=== PATIENT | male | born 1945 | race Hispanic/Latino ===

== ENCOUNTER 2019-12-03 00:07 | Inpatient (IN) | payer OTHER ==
[~2019-12-03] VITALS: Ht 182.9 cm; Wt 79.7 kg
[2019-12-04] VITALS (14 sets, daily range): BP systolic 92–122; BP diastolic 54–81
[2019-12-04] MEDS: HEPARIN SODIUM 5000UNIT/ML 1ML VIAL SQ SCH ×2 (03:15→15:02)
[2019-12-04] MEDS ORDERED: FUROSEMIDE 10 MG/ML 2ML VIAL IV SCH (03:15)
[2019-12-04] MEDS ORDERED: ONDANSETRON HCL 4 MG/2 ML VIAL IV PRN (03:15)
[2019-12-04] MEDS ORDERED: MORPHINE SULFATE 2 MG/ML 1ML SYG IVP PRN (03:15)
[2019-12-04] MEDS ORDERED: HYDRALAZINE HCL 20 MG/ML VIAL IV PRN (03:15)
[2019-12-04] MEDS: NITROGLYCERIN 1GM/1 INCH PACKET TD SCH ×2 (03:54→12:05)
[2019-12-04] MEDS ORDERED: IPRATROPIUM/ALBUTEROL SULFATE 3 ML SOLUTION IH PRN (04:45)
[2019-12-04 07:05] LABS: BASOPHILS % (AUTO) 0.7 % (0.0-5.0); EOSINOPHILS % (AUTO) 4.4 % (0.0-8.0); LYMPHOCYTES % (AUTO) 18.2 % (21.0-51.0); MEAN CORPUSCULAR HEMOGLOBIN 28.8 pg (27.0-33.0); MEAN CORPUSCULAR HGB CONC 31.1 g/dL (32.0-36.0); MEAN CORPUSCULAR VOLUME 92.6 fL (79-99); MONOCYTES % (AUTO) 10.6 % (3.0-13.0); NEUTROPHILS % (AUTO) 65.8 % (40.0-77.0); PLATELET COUNT (AUTO) 241 K/uL (130-400); RED BLOOD CELL COUNT(AUTO) 3.78 MIL/uL (4.50-6.20); RED CELL DISTRIBUTION WIDTH 14.8 % (11.0-15.5); WHITE BLOOD COUNT (AUTO) 6.8 K/uL (4.8-10.8)
[2019-12-04 07:16] LABS: INR 1.08 (0.85-1.15); PROTHROMBIN TIME 11.6 SEC (9.6-11.6)
[2019-12-04 07:23] LABS: ALBUMIN 2.8 g/dL (3.5-5.0); BILIRUBIN,DIRECT 0.3 mg/dL (0.0-0.3); CREATININE 1.1 mg/dL (0.5-1.5); POTASSIUM 3.8 mmol/L (3.5-5.1); TOTAL PROTEIN, SERUM 6.5 g/dL (6.0-8.3); TROPONIN I 0.19 ng/mL (0.00-0.06)
[2019-12-04 07:33] LABS: B-TYPE NATRIURETIC PEPTIDE 972 pg/mL (0-100)
[2019-12-04] MEDS ORDERED: LOSARTAN 50 MG TABLET PO SCH (09:00)
[2019-12-04] MEDS: FAMOTIDINE/PF 20 MG/2 ML VIAL IV SCH ×2 (09:24→20:06)
[2019-12-04] MEDS ORDERED: IOHEXOL 350 MG/ML 100ML INFUS..BTL IV ONE (14:02)
[2019-12-04] MEDS ORDERED: NITROGLYCERIN 2 MG/VIAL VIAL IV ONE (14:02)
[2019-12-04] MEDS ORDERED: HEPARIN SODIUM 1000UNIT/ML 10ML VIAL ONE (14:02)
[2019-12-04] MEDS ORDERED: BIVALIRUDIN 250 MG/VIAL IV ONE (14:02)
[2019-12-04] MEDS ORDERED: LIDOCAINE HCL 2% 20ML ONE (14:03)
[2019-12-04] MEDS ORDERED: MIDAZOLAM HCL 1 MG/ML 2ML VIAL ONE (14:03)
[2019-12-04] MEDS ORDERED: AMINOCAPROIC ACID 250 MG/ML 20 ML VIAL IV ONE (16:05)
[2019-12-04] MEDS ORDERED: ALBUMIN (HUMAN) 25% 50 ML IV ONE (16:05)
[2019-12-04] MEDS ORDERED: PHENYLEPHRINE HCL 10 MG/ML 1ML VIAL IV ONE (16:08)
[2019-12-04] MEDS ORDERED: MAGNESIUM SULFATE 1 GM/2 ML VIAL IM ONE (16:08)
[2019-12-04] MEDS ORDERED: SODIUM BICARB 8.4% 50ML SYRINGE IVP ONE (16:08)
[2019-12-04] MEDS ORDERED: HEPARIN SODIUM 1000UNIT/ML 10ML VIAL IV ONE (16:08)
[2019-12-04] MEDS ORDERED: MANNITOL 25% 50ML VIAL IV ONE (16:08)
[2019-12-04] MEDS ORDERED: CALCIUM CHLORIDE 100 MG/ML 10 ML SYG IVP ONE (16:08)
[2019-12-04] MEDS ORDERED: IOHEXOL-350 50ML VIAL IV ONE ×2 (16:11→16:43)
[2019-12-04] MEDS ORDERED: ASPIRIN 325MG EC TAB 325 MG TABLET.DR PO ONE (16:18)
[2019-12-04] MEDS ORDERED: CLOPIDOGREL BISULFATE 300 MG TAB ONE (16:18)
[2019-12-04] MEDS: FUROSEMIDE 10 MG/ML 2ML VIAL IV SCH (18:02)
[2019-12-04] MEDS: ATORVASTATIN CALCIUM 20 MG TABLET PO SCH (20:06)
[2019-12-05] VITALS (8 sets, daily range): BP systolic 87–136; BP diastolic 52–70
[2019-12-05 05:14] LABS: BASOPHILS % (AUTO) 0.6 % (0.0-5.0); EOSINOPHILS % (AUTO) 3.7 % (0.0-8.0); HEMATOCRIT 35.5 % (42-54); LYMPHOCYTES % (AUTO) 20.9 % (21.0-51.0); MEAN CORPUSCULAR HEMOGLOBIN 29.7 pg (27.0-33.0); MEAN CORPUSCULAR HGB CONC 31.8 g/dL (32.0-36.0); MEAN CORPUSCULAR VOLUME 93.2 fL (79-99); MONOCYTES % (AUTO) 13.3 % (3.0-13.0); NEUTROPHILS % (AUTO) 61.2 % (40.0-77.0); PLATELET COUNT (AUTO) 272 K/uL (130-400); RED BLOOD CELL COUNT(AUTO) 3.81 MIL/uL (4.50-6.20); RED CELL DISTRIBUTION WIDTH 14.7 % (11.0-15.5); WHITE BLOOD COUNT (AUTO) 6.4 K/uL (4.8-10.8)
[2019-12-05 05:31] LABS: B-TYPE NATRIURETIC PEPTIDE 1050 pg/mL (0-100)
[2019-12-05 05:37] LABS: ALANINE AMINOTRANSFERASE 51 U/L (12-78); ASPARTATE AMINOTRANSFERASE 24 U/L (10-37); BILIRUBIN,TOTAL 0.7 mg/dL (0.2-1.0); CARBON DIOXIDE 31 mmol/L (21-32); CHLORIDE 103 mmol/L (101-111); CHOLESTEROL 100 mg/dL (<200); CREATININE 1.2 mg/dL (0.5-1.5); GLOMERULAR FILTR. RATE CALC 63 mL/min (>60); GLUCOSE,RANDOM 93 mg/dL (70-105); HDL CHOLESTEROL 25 mg/dL (29-71); LDL DIRECT 65 mg/dL (0-99); PHOSPHORUS 3.5 mg/dL (2.5-4.9); POTASSIUM 3.5 mmol/L (3.5-5.1); SODIUM SERUM 139 mmol/L (136-145); TOTAL PROTEIN, SERUM 6.8 g/dL (6.0-8.3); TRIGLYCERIDES 80 mg/dL (30-200); UREA NITROGEN, BLOOD 26 mg/dL (7-18)
[2019-12-05] MEDS: FUROSEMIDE 10 MG/ML 2ML VIAL IV SCH ×2 (06:04→17:16)
[2019-12-05] MEDS ORDERED: POTASSIUM CHLORIDE 20MEQ/100ML 100 ML IV PRN (07:45)
[2019-12-05] MEDS ORDERED: LIDOCAINE HCL-MPF 1% 2ML VIAL IV PRN (07:45)
[2019-12-05] MEDS ORDERED: POTASSIUM CHLORIDE 20 MEQ ERTAB PO PRN (07:45)
[2019-12-05] MEDS: ASPIRIN 81 MG EC TAB PO SCH (08:30)
[2019-12-05] MEDS: FAMOTIDINE/PF 20 MG/2 ML VIAL IV SCH ×2 (08:30→21:00)
[2019-12-05] MEDS: POTASSIUM CHLORIDE 10% ELIXIR 20 MEQ/15 ML UDCUP PO PRN ×2 (08:30→13:20)
[2019-12-05] MEDS ORDERED: POTASSIUM CHLORIDE 10% ELIXIR 20 MEQ/15 ML UDCUP PO SCH (12:00)
[2019-12-05] MEDS ORDERED: FUROSEMIDE 10 MG/ML 2ML VIAL IV SCH (12:00)
[2019-12-05] MEDS: ATORVASTATIN CALCIUM 20 MG TABLET PO SCH (21:00)
[2019-12-06 03:00] VITALS: BP 105/67
[2019-12-06] MEDS: FUROSEMIDE 10 MG/ML 2ML VIAL IV SCH ×2 (05:31→18:49)
[2019-12-06 07:00] VITALS: BP 89/53
[2019-12-06] MEDS: ASPIRIN 81 MG EC TAB PO SCH (09:00)
[2019-12-06] MEDS: FAMOTIDINE/PF 20 MG/2 ML VIAL IV SCH ×2 (09:00→20:09)
[2019-12-06 09:26] LABS: CREATININE 1.2 mg/dL (0.5-1.5)
[2019-12-06 11:42] VITALS: BP 87/58
[2019-12-06 16:00] VITALS: BP 97/64
[2019-12-06 20:09] VITALS: BP 93/61
[2019-12-06] MEDS: ATORVASTATIN CALCIUM 20 MG TABLET PO SCH (20:09)
[2019-12-06 23:37] VITALS: BP 114/73
[2019-12-07 03:58] VITALS: BP 108/83
[2019-12-07] MEDS: FUROSEMIDE 10 MG/ML 2ML VIAL IV SCH ×2 (05:03→16:11)
[2019-12-07 07:17] VITALS: BP 99/65
[2019-12-07] MEDS: ENOXAPARIN SODIUM 30 MG/0.3 ML SQ SCH (08:56)
[2019-12-07] MEDS: ASPIRIN 81 MG EC TAB PO SCH (08:56)
[2019-12-07] MEDS: FAMOTIDINE/PF 20 MG/2 ML VIAL IV SCH ×2 (08:56→20:49)
[2019-12-07 11:12] VITALS: BP 105/62
[2019-12-07 15:43] VITALS: BP 106/65
[2019-12-07 19:21] VITALS: BP 96/67
[2019-12-07] MEDS: ATORVASTATIN CALCIUM 20 MG TABLET PO SCH (20:49)
[2019-12-07 23:00] VITALS: BP 100/60
[2019-12-08] VITALS (7 sets, daily range): BP systolic 84–108; BP diastolic 54–67
[2019-12-08] MEDS: FUROSEMIDE 10 MG/ML 2ML VIAL IV SCH ×2 (05:15→17:21)
[2019-12-08 07:13] LABS: BASOPHILS % (AUTO) 0.8 % (0.0-5.0); EOSINOPHILS % (AUTO) 3.3 % (0.0-8.0); LYMPHOCYTES % (AUTO) 19.1 % (21.0-51.0); MEAN CORPUSCULAR HEMOGLOBIN 29.5 pg (27.0-33.0); MEAN CORPUSCULAR HGB CONC 32.1 g/dL (32.0-36.0); NEUTROPHILS % (AUTO) 65.4 % (40.0-77.0); PLATELET COUNT (AUTO) 274 K/uL (130-400); RED BLOOD CELL COUNT(AUTO) 4.24 MIL/uL (4.50-6.20); RED CELL DISTRIBUTION WIDTH 14.5 % (11.0-15.5); WHITE BLOOD COUNT (AUTO) 7.9 K/uL (4.8-10.8)
[2019-12-08 07:18] LABS: ALBUMIN 3.2 g/dL (3.5-5.0); CREATININE 1.1 mg/dL (0.5-1.5); POTASSIUM 3.7 mmol/L (3.5-5.1); TOTAL PROTEIN, SERUM 7.4 g/dL (6.0-8.3)
[2019-12-08] MEDS: FAMOTIDINE/PF 20 MG/2 ML VIAL IV SCH ×2 (09:11→20:35)
[2019-12-08] MEDS: ASPIRIN 81 MG EC TAB PO SCH (09:11)
[2019-12-08] MEDS: ENOXAPARIN SODIUM 30 MG/0.3 ML SQ SCH (09:12)
[2019-12-08 09:33] LABS: BILIRUBIN,TOTAL 0.9 mg/dL (0.2-1.0)
[2019-12-08] MEDS: ATORVASTATIN CALCIUM 20 MG TABLET PO SCH (20:35)
[2019-12-09] VITALS (33 sets, daily range): BP systolic 90–208; BP diastolic 41–192
[2019-12-09] MEDS: FUROSEMIDE 10 MG/ML 2ML VIAL IV SCH (04:25)
[2019-12-09 04:47] LABS: BASOPHILS % (AUTO) 0.6 % (0.0-5.0); EOSINOPHILS % (AUTO) 4.2 % (0.0-8.0); LYMPHOCYTES % (AUTO) 20.7 % (21.0-51.0); MEAN CORPUSCULAR HEMOGLOBIN 28.5 pg (27.0-33.0); MEAN CORPUSCULAR HGB CONC 31.6 g/dL (32.0-36.0); MEAN CORPUSCULAR VOLUME 90.2 fL (79-99); MONOCYTES % (AUTO) 13.6 % (3.0-13.0); NEUTROPHILS % (AUTO) 60.6 % (40.0-77.0); PLATELET COUNT (AUTO) 249 K/uL (130-400); RED CELL DISTRIBUTION WIDTH 14.3 % (11.0-15.5); WHITE BLOOD COUNT (AUTO) 6.4 K/uL (4.8-10.8)
[2019-12-09 05:11] LABS: BILIRUBIN,TOTAL 0.9 mg/dL (0.2-1.0); CREATININE 1.1 mg/dL (0.5-1.5); INR 1.02 (0.85-1.15); PARTIAL THROMBOPLASTIN TIME 30.3 SEC (26.3-35.5); POTASSIUM 3.8 mmol/L (3.5-5.1); TOTAL PROTEIN, SERUM 7.2 g/dL (6.0-8.3)
[2019-12-09] MEDS ORDERED: AMINOCAPROIC ACID 15,000 MG in SODIUM CHLORIDE 0.9% 500ML 420 ML IV PRN (08:45)
[2019-12-09] MEDS ORDERED: EPINEPHRINE 10 MG in SODIUM CHLORIDE 0.9% 240 ML IV PRN (08:45)
[2019-12-09] MEDS ORDERED: NOREPINEPHRINE BITARTRATE 8 MG in DEXTROSE 5%-WATER 250 ML IV PRN (08:45)
[2019-12-09] MEDS: ASPIRIN 81 MG EC TAB PO SCH (09:00)
[2019-12-09] MEDS: FAMOTIDINE/PF 20 MG/2 ML VIAL IV SCH ×2 (10:08→21:21)
[2019-12-09] MEDS ORDERED: LACTATED RINGERS 1000ML 1,000 ML IV ONE (10:27)
[2019-12-09] MEDS ORDERED: HEPARIN SODIUM 1000UNIT/ML 10ML VIAL ONE (10:32)
[2019-12-09] MEDS ORDERED: EPINEPHRINE 1 MG/ML AMPULE ONE (10:32)
[2019-12-09] MEDS ORDERED: MIDAZOLAM HCL 1 MG/ML 2ML VIAL ONE (10:32)
[2019-12-09] MEDS ORDERED: AMINOCAPROIC ACID 250 MG/ML 20 ML VIAL IV ONE (10:32)
[2019-12-09] MEDS ORDERED: PROPOFOL 10 MG/ML 20ML VIAL IV ONE (10:32)
[2019-12-09] MEDS ORDERED: NOREPINEPHRINE BITARTRATE 1 MG/1 ML ML IV ONE (10:32)
[2019-12-09] MEDS ORDERED: PROTAMINE SULFATE 10 MG/ML 25ML VIAL IV ONE (10:32)
[2019-12-09] MEDS ORDERED: LIDOCAINE PF 2% 5ML ABBOJECT ONE (10:32)
[2019-12-09] MEDS ORDERED: ESMOLOL HCL 10 MG/ML 10 ML VIAL ONE (10:32)
[2019-12-09] MEDS ORDERED: ROCURONIUM 10MG/1ML SYR 10 MG/ML ML ONE (10:33)
[2019-12-09] MEDS ORDERED: FENTANYL CITRATE PF 50 MCG/1 ML 5ML AMP IV ONE ×2 (10:33→14:44)
[2019-12-09] MEDS ORDERED: KETAMINE 50MG/ML SYRINGE 50 MG/ML DISP.SYRIN IV ONE (10:35)
[2019-12-09] MEDS ORDERED: CEFAZOLIN SODIUM 1 GM VIAL IVP PRN (11:00)
[2019-12-09] MEDS ORDERED: NITROGLYCERIN 50 MG/D5% WATER 1 BOT ONE (12:51)
[2019-12-09] MEDS ORDERED: SODIUM CHLORIDE 0.9% 500ML 500 ML IV SCH (13:13)
[2019-12-09] MEDS ORDERED: ONDANSETRON HCL 4 MG/2 ML VIAL IV PRN (13:15)
[2019-12-09] MEDS ORDERED: MAGNESIUM 2GM PREMIX 50ML 50 ML IV PRN (13:15)
[2019-12-09] MEDS ORDERED: AMINOCAPROIC ACID 15,000 MG in SODIUM CHLORIDE 0.9% 250 ML IV SCH (13:15)
[2019-12-09] MEDS ORDERED: SODIUM CHLORIDE 0.9% 10 ML VIAL IVP PRN (13:15)
[2019-12-09] MEDS ORDERED: MORPHINE SULFATE 4 MG/1ML SYG IV PRN (13:15)
[2019-12-09] MEDS ORDERED: TRAMADOL HCL 50 MG TABLET PO PRN ×2 (13:15)
[2019-12-09] MEDS ORDERED: ALBUMIN (HUMAN) 5% 250 ML IV PRN (13:15)
[2019-12-09] MEDS ORDERED: SODIUM CHLORIDE 0.9% 1000ML 1,000 ML IV SCH (13:15)
[2019-12-09] MEDS ORDERED: MORPHINE SULFATE 2 MG/ML 1ML SYG IV PRN (13:15)
[2019-12-09] MEDS ORDERED: EPINEPHRINE 10 MG in DEXTROSE 5%-WATER 250 ML IV PRN (13:15)
[2019-12-09] MEDS ORDERED: NITROGLYCERIN 50 MG/D5% WATER 250 BOT IV SCH (13:15)
[2019-12-09] MEDS ORDERED: ACETAMINOPHEN 650 MG SUPPOSITORY RC PRN (13:15)
[2019-12-09] MEDS ORDERED: ACETAMINOPHEN 325 MG TAB PO PRN ×2 (13:15)
[2019-12-09] MEDS ORDERED: DEXTROSE 50%-WATER 50 ML DISP.SYRIN IV PRN (13:15)
[2019-12-09] MEDS ORDERED: POTASSIUM PHOS 15 mMOL+NS250ML 250 ML IV PRN (13:15)
[2019-12-09] MEDS ORDERED: Q-PUMP 1 EACH IRRIG SCH (13:15)
[2019-12-09] MEDS ORDERED: SODIUM CHLORIDE 0.9% 250 ML IV PRN (13:15)
[2019-12-09] MEDS ORDERED: NOREPINEPHRINE 4MG/NS 250ML 250 ML IV PRN (13:15)
[2019-12-09] MEDS ORDERED: INSULIN REGULAR, HUMAN 3ML 100 UNIT in SODIUM CHLORIDE 0.9% 99 ML IV SCH ×2 (13:15)
[2019-12-09] MEDS ORDERED: GLUCAGON 1MG KIT 1 MG ML IM PRN (13:15)
[2019-12-09] MEDS ORDERED: PROPOFOL 1000 MG/100 ML 100 ML IV PRN (13:15)
[2019-12-09 13:19] LABS: ABG BASE EXCESS -1.7 mmol/L (-2.0-3.0); ABG HCO3 21.8 mmol/L (21.0-28.0); ABG OXYGEN SATURATION 99.6 % (95.0-99.0); ABG PCO2 33 mmHg (35-48)
[2019-12-09 13:43] LABS: ABG BASE EXCESS 1.7 mmol/L (-2.0-3.0); ABG HCO3 25.4 mmol/L (21.0-28.0); ABG OXYGEN SATURATION 99.2 % (95.0-99.0); ABG PCO2 36 mmHg (35-48)
[2019-12-09 14:14] LABS: ABG BASE EXCESS -2.6 mmol/L (-2.0-3.0); ABG HCO3 21.8 mmol/L (21.0-28.0); ABG OXYGEN SATURATION 98.5 % (95.0-99.0); ABG PCO2 36 mmHg (35-48)
[2019-12-09] MEDS ORDERED: AMIODARONE HCL 50 MG/ML 3 ML VIAL ONE (14:15)
[2019-12-09] MEDS ORDERED: ROPIVACAINE 0.5% 5MG/ML 30ML IJ ONE (14:23)
[2019-12-09 15:10] LABS: ABG BASE EXCESS -6.7 mmol/L (-2.0-3.0); ABG HCO3 17.8 mmol/L (21.0-28.0); ABG OXYGEN SATURATION 99.3 % (95.0-99.0); ABG PCO2 32 mmHg (35-48)
[2019-12-09] MEDS ORDERED: SODIUM BICARB 8.4% 50ML SYRINGE ONE (15:14)
[2019-12-09] MEDS ORDERED: ROPIVACAINE 0.2% 2MG/ML 100ML VIAL IJ ONE (15:32)
[2019-12-09 16:10] LABS: ABG BASE EXCESS -2.6 mmol/L (-2.0-3.0); ABG HCO3 22.2 mmol/L (21.0-28.0); ABG OXYGEN SATURATION 97.9 % (95.0-99.0); ABG PCO2 39 mmHg (35-48)
[2019-12-09 16:15] LABS: HEMATOCRIT 43.1 % (42-54); MEAN CORPUSCULAR HEMOGLOBIN 28.8 pg (27.0-33.0); MEAN CORPUSCULAR HGB CONC 31.8 g/dL (32.0-36.0); MEAN CORPUSCULAR VOLUME 90.7 fL (79-99); PLATELET COUNT (AUTO) 152 K/uL (130-400); RED BLOOD CELL COUNT(AUTO) 4.75 MIL/uL (4.50-6.20); RED CELL DISTRIBUTION WIDTH 14.5 % (11.0-15.5)
[2019-12-09] MEDS: SODIUM BICARB 50MEQ 50ML VIAL IV PRN ×5 (16:17→22:44)
[2019-12-09 16:25] LABS: INR 1.25 (0.85-1.15); PARTIAL THROMBOPLASTIN TIME 34.8 SEC (26.3-35.5); PROTHROMBIN TIME 13.4 SEC (9.6-11.6)
[2019-12-09] MEDS: POTASSIUM CHLORIDE 20MEQ/100ML 100 ML IV PRN ×4 (16:27→22:45)
[2019-12-09 16:40] LABS: CREATININE 1.2 mg/dL (0.5-1.5); MAGNESIUM 2.9 mg/dL (1.80-2.40); PHOSPHORUS 4.1 mg/dL (2.5-4.9); POTASSIUM 3.3 mmol/L (3.5-5.1)
[2019-12-09 17:38] LABS: BAND NEUTROPHILS % (MANUAL) 6 % (0-2); LYMPHOCYTES % (MANUAL) 4 % (22-44); MAN.DIFF COMMENT-IMPRESSION MANUAL DIFFERENTIAL; MONOCYTES % (MANUAL) 5 % (2-9); REACTIVE LYMPHOCYTES 4 % (0-0); SEGMENTED NEUTROPHILS % 81 % (40-70)
[2019-12-09 18:07] LABS: ABG BASE EXCESS -3.7 mmol/L (-2.0-3.0); ABG HCO3 21.2 mmol/L (21.0-28.0); ABG OXYGEN SATURATION 98.9 % (95.0-99.0); ABG PCO2 38 mmHg (35-48)
[2019-12-09] MEDS: CEFAZOLIN SODIUM 1 GM VIAL IV SCH (18:13)
[2019-12-09] MEDS: CALCIUM GLUCONATE 1 GM in SODIUM CHLORIDE 0.9% 50 ML IV PRN ×3 (18:23→22:45)
[2019-12-09 20:02] LABS: ABG BASE EXCESS -4.7 mmol/L (-2.0-3.0); ABG HCO3 19.9 mmol/L (21.0-28.0); ABG OXYGEN SATURATION 98.3 % (95.0-99.0); ABG PCO2 36 mmHg (35-48)
[2019-12-09 20:59] LABS: ABG BASE EXCESS -0.9 mmol/L (-2.0-3.0); ABG HCO3 23.2 mmol/L (21.0-28.0); ABG OXYGEN SATURATION 98.1 % (95.0-99.0); ABG PCO2 37 mmHg (35-48)
[2019-12-09] MEDS: ATORVASTATIN CALCIUM 20 MG TABLET PO SCH (21:00)
[2019-12-09 21:02] LABS: ABG BASE EXCESS -2.4 mmol/L (-2.0-3.0); ABG OXYGEN SATURATION 98.3 % (95.0-99.0); ABG PCO2 32 mmHg (35-48)
[2019-12-09 22:41] LABS: ABG BASE EXCESS -6.6 mmol/L (-2.0-3.0); ABG HCO3 17.1 mmol/L (21.0-28.0); ABG OXYGEN SATURATION 98.1 % (95.0-99.0); ABG PCO2 29 mmHg (35-48)
[2019-12-10] VITALS (43 sets, daily range): BP systolic 101–176; BP diastolic 47–92
[2019-12-10] MEDS: CEFAZOLIN SODIUM 1 GM VIAL IV SCH ×2 (02:12→11:01)
[2019-12-10 04:04] LABS: HEMATOCRIT 40.4 % (42-54); MEAN CORPUSCULAR HEMOGLOBIN 29.2 pg (27.0-33.0); MEAN CORPUSCULAR HGB CONC 31.7 g/dL (32.0-36.0); PLATELET COUNT (AUTO) 149 K/uL (130-400); RED BLOOD CELL COUNT(AUTO) 4.39 MIL/uL (4.50-6.20); RED CELL DISTRIBUTION WIDTH 14.4 % (11.0-15.5); WHITE BLOOD COUNT (AUTO) 18.5 K/uL (4.8-10.8)
[2019-12-10 04:09] LABS: INR 1.12 (0.85-1.15)
[2019-12-10 04:11] LABS: CREATININE 1.6 mg/dL (0.5-1.5); MAGNESIUM 1.9 mg/dL (1.80-2.40); PHOSPHORUS 1.6 mg/dL (2.5-4.9)
[2019-12-10] MEDS: POTASSIUM CHLORIDE 20MEQ/100ML 100 ML IV PRN ×3 (04:17→09:27)
[2019-12-10] MEDS: CALCIUM GLUCONATE 1 GM in SODIUM CHLORIDE 0.9% 50 ML IV PRN (04:21)
[2019-12-10] MEDS ORDERED: PHARMACY COMMUNICATION MISC SCH (05:00)
[2019-12-10 07:59] LABS: ABG BASE EXCESS 3.6 mmol/L (-2.0-3.0); ABG OXYGEN SATURATION 94.6 % (95.0-99.0); ABG PCO2 42 mmHg (35-48)
[2019-12-10] MEDS: FUROSEMIDE 10 MG/ML 2ML VIAL IV SCH ×2 (09:26→22:10)
[2019-12-10] MEDS: ASPIRIN 81 MG EC TAB PO SCH (09:26)
[2019-12-10] MEDS: FAMOTIDINE/PF 20 MG/2 ML VIAL IV SCH ×2 (09:27→22:10)
[2019-12-10 12:25] LABS: MAGNESIUM 2.5 mg/dL (1.80-2.40); POTASSIUM 5.2 mmol/L (3.5-5.1)
[2019-12-10] MEDS: ATORVASTATIN CALCIUM 20 MG TABLET PO SCH (22:10)
[2019-12-11] VITALS (21 sets, daily range): BP systolic 82–140; BP diastolic 43–66
[2019-12-11 03:59] LABS: HEMATOCRIT 29.5 % (42-54); MEAN CORPUSCULAR HEMOGLOBIN 28.7 pg (27.0-33.0); MEAN CORPUSCULAR HGB CONC 31.2 g/dL (32.0-36.0); MEAN CORPUSCULAR VOLUME 91.9 fL (79-99); PLATELET COUNT (AUTO) 97 K/uL (130-400); RED BLOOD CELL COUNT(AUTO) 3.21 MIL/uL (4.50-6.20); RED CELL DISTRIBUTION WIDTH 14.5 % (11.0-15.5); WHITE BLOOD COUNT (AUTO) 16.7 K/uL (4.8-10.8)
[2019-12-11] MEDS: POTASSIUM CHLORIDE 20MEQ/100ML 100 ML IV PRN (06:04)
[2019-12-11] MEDS: FAMOTIDINE/PF 20 MG/2 ML VIAL IV SCH ×3 (08:33→21:47)
[2019-12-11] MEDS: FUROSEMIDE 20 MG TABLET PO SCH ×2 (08:33→16:57)
[2019-12-11] MEDS: ASPIRIN 81 MG EC TAB PO SCH (08:33)
[2019-12-11] MEDS: METOPROLOL TARTRATE 25 MG TAB PO SCH ×3 (08:33→21:36)
[2019-12-11] MEDS ORDERED: POTASSIUM CHLORIDE 10% ELIXIR 20 MEQ/15 ML UDCUP PO PRN (17:15)
[2019-12-11] MEDS ORDERED: POTASSIUM CHLORIDE 20 MEQ ERTAB PO PRN (17:15)
[2019-12-11] MEDS: ATORVASTATIN CALCIUM 20 MG TABLET PO SCH (21:36)
[2019-12-12 03:46] LABS: HEMATOCRIT 27.2 % (42-54); MEAN CORPUSCULAR HEMOGLOBIN 29.1 pg (27.0-33.0); MEAN CORPUSCULAR HGB CONC 31.6 g/dL (32.0-36.0); MEAN CORPUSCULAR VOLUME 91.9 fL (79-99); PLATELET COUNT (AUTO) 100 K/uL (130-400); RED BLOOD CELL COUNT(AUTO) 2.96 MIL/uL (4.50-6.20); RED CELL DISTRIBUTION WIDTH 14.1 % (11.0-15.5); WHITE BLOOD COUNT (AUTO) 13.4 K/uL (4.8-10.8)
[2019-12-12 04:13] VITALS: BP 100/53
[2019-12-12 07:30] VITALS: BP 104/55
[2019-12-12] MEDS: METOPROLOL TARTRATE 25 MG TAB PO SCH ×4 (08:05→21:00)
[2019-12-12] MEDS ORDERED: ENOXAPARIN SODIUM 30 MG/0.3 ML SQ SCH (09:00)
[2019-12-12] MEDS: FUROSEMIDE 20 MG TABLET PO SCH ×2 (09:25→17:16)
[2019-12-12] MEDS: ASPIRIN 81 MG EC TAB PO SCH (09:26)
[2019-12-12 11:00] VITALS: BP 113/56
[2019-12-12] MEDS ORDERED: AEC81 PO (13:30)
[2019-12-12] MEDS ORDERED: ATOR20TA65 PO (13:30)
[2019-12-12] MEDS ORDERED: FURO20TA6 PO (13:30)
[2019-12-12] MEDS ORDERED: METO25 PO (13:30)
[2019-12-12 16:00] VITALS: BP 110/58
[2019-12-12 19:00] VITALS: BP 120/58
[2019-12-12] MEDS: ATORVASTATIN CALCIUM 20 MG TABLET PO SCH (20:45)
[2019-12-12] MEDS: FAMOTIDINE/PF 20 MG/2 ML VIAL IV SCH (20:53)
[2019-12-12 23:00] VITALS: BP 124/67
[2019-12-13 03:00] VITALS: BP 122/58
[2019-12-13 05:07] LABS: HEMATOCRIT 30.5 % (42-54); MEAN CORPUSCULAR HEMOGLOBIN 28.3 pg (27.0-33.0); MEAN CORPUSCULAR HGB CONC 31.5 g/dL (32.0-36.0); PLATELET COUNT (AUTO) 126 K/uL (130-400); RED BLOOD CELL COUNT(AUTO) 3.39 MIL/uL (4.50-6.20); RED CELL DISTRIBUTION WIDTH 13.9 % (11.0-15.5); WHITE BLOOD COUNT (AUTO) 9.2 K/uL (4.8-10.8)
[2019-12-13 05:22] LABS: CREATININE 0.9 mg/dL (0.5-1.5)
[2019-12-13 07:32] VITALS: BP 132/60
[2019-12-13] MEDS: METOPROLOL TARTRATE 25 MG TAB PO SCH (09:47)
[2019-12-13] MEDS: ASPIRIN 81 MG EC TAB PO SCH (09:47)
[2019-12-13] MEDS: FUROSEMIDE 20 MG TABLET PO SCH ×2 (09:51→16:51)
[2019-12-13 11:30] VITALS: BP 124/56
[2019-12-13 16:00] VITALS: BP 122/66
== END 2019-12-13 18:15 | disposition home or self-care (01) | DRG 216 ==
LOC: 2AH 12-04 01:38 → 4DH 12-07 18:36 → 2CV 12-09 11:22 → 2BH 12-10 05:31 → 4DH 12-11 17:09 → 2AH 12-12 19:00
PROVIDERS: ADMIT Internal Medicine; ATTEND Internal Medicine
PROC: 4A023N8 Measurement of Cardiac Sampling and Pressure, Bilateral, Percutaneous Approach (ICD-10-PCS; principal; 2019-12-04)
PROC: B2111ZZ Fluoroscopy of Multiple Coronary Arteries using Low Osmolar Contrast (ICD-10-PCS; 2019-12-04)
PROC: B2151ZZ Fluoroscopy of Left Heart using Low Osmolar Contrast (ICD-10-PCS; 2019-12-04)
PROC: B41F1ZZ Fluoroscopy of Right Lower Extremity Arteries using Low Osmolar Contrast (ICD-10-PCS; 2019-12-04)
PROC: 5A1221Z Performance of Cardiac Output, Continuous (ICD-10-PCS; 2019-12-09)
PROC: 3E083GC Introduction of Other Therapeutic Substance into Heart, Percutaneous Approach (ICD-10-PCS; 2019-12-09)
PROC: 02RF08Z Replacement of Aortic Valve with Zooplastic Tissue, Open Approach (ICD-10-PCS; 2019-12-09 11:00)
DX: I25.10 Atherosclerotic heart disease of native coronary artery without angina pectoris (principal); I21.4 Non-ST elevation (NSTEMI) myocardial infarction; I50.43 Acute on chronic combined systolic (congestive) and diastolic (congestive) heart failure; E87.1 Hypo-osmolality and hyponatremia; N17.9 Acute kidney failure, unspecified; I35.0 Nonrheumatic aortic (valve) stenosis; I42.0 Dilated cardiomyopathy; I27.20 Pulmonary hypertension, unspecified; D64.9 Anemia, unspecified; E78.00 Pure hypercholesterolemia, unspecified; E87.6 Hypokalemia; Z79.82 Long term (current) use of aspirin; Z79.899 Other long term (current) drug therapy; Z95.1 Presence of aortocoronary bypass graft
CPT/HCPCS: 36415; 71045; 80048; 80053; 80061; 80076; 82330; 82435; 82550; 82803; 82947; 82948; 83036; 83605; 83735; 83874; 83880; 84100; 84132; 84145; 84295; 84443; 84484; 85018; 85025; 85027; 85610; 85730; 86850; 86900; 86901; 86922; 87804; 93005; 93313; 93318; 93460; 93880; 94002; 94010; 94150; 97039; 99156; 99157; A4357; A7048; C1760; C1769; C1893; C1894; G0378; J0171; J0282; J0583; J0610; J0690; J1644; J1650; J1815; J1940; J2001; J2150; J2250; J2270; J2370; J2405; J2704; J2720; J2795; J3010; J3475; J3480; J3490; J7030; J7040; J7060; J7120; P9047; Q9967